=== PATIENT | male | born 1980 | race Caucasian/White ===

== ENCOUNTER 2021-11-04 14:16 | Observation (INO) ==
[2021-11-04] MEDS ORDERED: ONDANSETRON 4 MG/2 ML VIAL IV PRN (15:52)
[2021-11-04] MEDS ORDERED: ACETAMINOPHEN 325 MG TABLET PO PRN (15:52)
[2021-11-04] MEDS ORDERED: HYDROmorphone 2 MG/1 ML VIAL IV PRN (15:52)
[2021-11-04] MEDS ORDERED: BISACODYL 5 MG TABLET PO PRN (15:52)
[2021-11-04] MEDS ORDERED: hydrALAZINE 20 MG/1 ML VIAL IV PRN (15:56)
[2021-11-04] MEDS: LACTATED RINGERS 1,000 ML IV SCH (18:00)
[2021-11-04] MEDS: PIPERACILLIN/TAZOBACTAM 3,375 MG in SODIUM CHLORIDE 0.9% 100 ML IV SCH (18:29)
[2021-11-05] MEDS: PIPERACILLIN/TAZOBACTAM 3,375 MG in SODIUM CHLORIDE 0.9% 100 ML IV SCH ×3 (01:26→17:10)
[2021-11-05] MEDS: LACTATED RINGERS 1,000 ML IV SCH ×3 (01:27→17:11)
[2021-11-05 05:43] LABS: Basophils % 0.4 % (0.0-0.8); Eosinophils # 0.1 10*3/uL (0.0-0.87); Eosinophils % 1.9 % (0.00-10.9); Hemoglobin 10.6 GM/DL (14.0-18.0); Immature Granulocytes % 0.4 %; Immature Granulocytes Absolute 0.03 #; Lymphocytes # 1.3 10*3/uL (1.4-4.0); Lymphocytes % 19.3 % (21.2-54.2); Mean Corpuscular HGB Conc 32.1 GM/DL (32-36); Mean Corpuscular Volume 82.5 FL (87-102); Monocytes % 5.8 % (1.7-12.7); Neutrophils % 72.2 % (38.7-73.9); Platelet Count 71 T/CUMM (130-400); White Blood Count 6.7 T/CUMM (4-12)
[2021-11-05 06:00] LABS: Albumin 2.7 G/DL (3.4-5.0); Calcium 7.1 MG/DL (8.5-10.1); Potassium 3.3 MMOL/L (3.5-5.1); Total Protein 6.2 G/DL (6.4-8.2)
[2021-11-05 06:06] LABS: Hypochromia Slight; Microcytosis Slight; Platelet Estimate Decreased
[2021-11-05] MEDS ORDERED: INDOCYANINE GREEN 25 MG VIAL IV ONE (08:09)
[2021-11-05] MEDS: PANTOPRAZOLE 40 MG TABLET PO SCH (09:47)
[2021-11-05] MEDS: atenoloL 50 MG TABLET PO SCH ×3 (09:48→14:36)
[2021-11-05] MEDS ORDERED: POTASSIUM CHLORIDE RIDER 10 MEQ/100 ML PREMIX IV PRN (09:49)
[2021-11-05] MEDS ORDERED: BUPIVACAINE MPF 0.25% 30 ML VIAL ONE (10:40)
[2021-11-05] MEDS ORDERED: LIDOCAINE 1%/EPI INJ 20 ML VIAL ONE (10:41)
[2021-11-05] MEDS ORDERED: TISSUE ADHESIVE 1 EACH APPLICATOR TOP ONE (10:41)
[2021-11-05] MEDS ORDERED: LIDOCAINE 2% 5 ML VIAL ONE (11:12)
[2021-11-05] MEDS ORDERED: SEVOFLURANE 1 UNIT/15 MINUTE INH ONE (11:12)
[2021-11-05] MEDS ORDERED: ROCURONIUM 50 MG/5 ML VIAL IV ONE (11:12)
[2021-11-05] MEDS ORDERED: propofoL 200 MG/20 ML VIAL IV ONE (11:12)
[2021-11-05] MEDS ORDERED: fentaNYL 100 MCG/2 ML VIAL ONE (11:14)
[2021-11-05] MEDS ORDERED: MIDAZOLAM 2 MG/2 ML VIAL ONE (11:14)
[2021-11-05] MEDS ORDERED: KETOROLAC 30 MG/1 ML VIAL ONE (12:14)
[2021-11-05] MEDS ORDERED: ESMOLOL 100 MG/10 ML VIAL IV ONE (12:14)
[2021-11-05] MEDS ORDERED: GLYCOPYRROLATE 0.4 MG/2 ML VIAL ONE (12:14)
[2021-11-05] MEDS ORDERED: ONDANSETRON 4 MG/2 ML VIAL ONE (12:14)
[2021-11-05] MEDS ORDERED: DEXAMETHASONE 4 MG/1 ML VIAL ONE (12:14)
[2021-11-05] MEDS ORDERED: NEOSTIGMINE 10 MG/10 ML VIAL ONE (12:15)
[2021-11-05] MEDS ORDERED: SUGAMMADEX 200 MG/2 ML VIAL IV ONE (12:28)
[2021-11-05] MEDS ORDERED: ceFAZolin 1,000 MG VIAL ONE (13:49)
[2021-11-06] MEDS: PIPERACILLIN/TAZOBACTAM 3,375 MG in SODIUM CHLORIDE 0.9% 100 ML IV SCH ×2 (01:03→08:30)
[2021-11-06] MEDS: PANTOPRAZOLE 40 MG TABLET PO SCH (08:31)
[2021-11-06] MEDS: atenoloL 50 MG TABLET PO SCH (08:32)
[2021-11-06 14:27] VITALS: BP 116/76
== END 2021-11-06 13:55 | disposition home or self-care (01) ==
LOC: EDBD → EDUNIT# → N.ED 14:16 → N.EDINP 15:52 → INTOOBSV 15:52 → N.5E 18:07
PROVIDERS: ADMIT Surgery; ATTEND Surgery